=== PATIENT | male | born 1960 | race Caucasian/White ===

== ENCOUNTER 2017-02-23 17:34 | Emergency (ER) | payer OTHER ==
[~2017-02-23 17:34] MED LIST: MELOPOW XX; PRAV40TA PO; SENO8.6T6 PO; SOMA250T OR; TRAM100T19 OR; VITA100T15 OR; VITACAP32; ZOLP5TAB3 PO; ZYVO600T OR
[2017-02-23 17:47] VITALS: BP 134/91; PULSE 87; RESP 18; TEMP 98.4; O2SAT 99
[2017-02-23] MEDS ORDERED: ASPI325T PO (18:33)
[2017-02-23] MEDS ORDERED: KETOROLAC TROMETHAMINE 30 MG/ML (IVP) VIAL IV PUSH ONE (19:30)
[2017-02-23] MEDS ORDERED: SODIUM CHLOR 0.9% 1000 ML INJ 1,000 ML IV ONE (19:30)
[2017-02-23 19:38] LABS: AUTOMATED NEUTROPHIL # 4.7 TH/MM3 (1.8-7.7); BASOPHIL # 0.1 TH/MM3 (0-0.2); EOSINOPHIL # 0.1 TH/MM3 (0-0.4); EOSINOPHIL % 1.9 % (0.0-4.0); HEMO FLAGS DIFF FINAL; LYMPH % 24.5 % (9.0-44.0); LYMPHOCYTE # 1.8 TH/MM3 (1.0-4.8); MEAN CELL VOLUME 93.9 FL (80.0-100.0); MEAN CORPUSCULAR HGB CONC 35.1 % (32.0-36.0); MONO % 8.4 % (0.0-8.0); NEUT % 64.2 % (16.0-70.0); PLATELET COUNT 145 TH/MM3 (150-450); RED BLOOD COUNT 4.47 MIL/MM3 (4.50-5.90); RED CELL DISTRIBUTION WIDTH 12.8 % (11.6-17.2); WHITE BLOOD COUNT 7.3 TH/MM3 (4.0-11.0)
[2017-02-23 19:47] LABS: POTASSIUM 3.5 MEQ/L (3.5-5.1)
[2017-02-23 19:50] LABS: BICARBONATE 28.5 MEQ/L (21.0-32.0)
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
[2017-02-23 20:22] LABS: BLOOD, URINE TRACE (NEG); GLUCOSE,URINE NEG (NEG); KETONE, URINE NEG (NEG)
[2017-02-23 20:24] LABS: NITRITE,URINE POS (NEG)
[2017-02-23 20:29] LABS: COMMENT (UR) CULTURE INDICATED; CULTURE IF INDICATED CULTURE INDICATED; SQUAMOUS EPITHELIAL CELL URINE 0-5 /hpf (0-5); URINE COLOR YELLOW (YELLW/STRAW); WBC, URINE INNUM /hpf (0-5)
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
[2017-02-23] MEDS ORDERED: BACT800T5 PO (21:09)
[2017-02-23] MEDS ORDERED: SULFAMETHOXAZOLE-TRIMETHOPRIM DS 800-160 MG TAB PO ONE (21:15)
[2017-02-23 21:45] VITALS: BP 130/86; PULSE 80; O2SAT 99
--- NOTE | 2017-02-24 16:51 | EKG ---
Date Performed: 02/23/2017 Time Performed: 19:33:43 PTAGE: 56 years EKG: Sinus rhythm NORMAL ECG NO PREVIOUS TRACING DOCTOR: Maurizio Vallecillo Interpretating Date/Time 02/24/2017 16:50:21
== END 2017-02-23 22:00 | disposition home or self-care (01) ==
LOC: PHED 17:34
DX: N30.00 Acute cystitis without hematuria (principal); S20.219A Contusion of unspecified front wall of thorax, initial encounter; B96.1 Klebsiella pneumoniae [K. pneumoniae] as the cause of diseases classified elsewhere; F17.210 Nicotine dependence, cigarettes, uncomplicated; V49.9XXA Car occupant (driver) (passenger) injured in unspecified traffic accident, initial encounter
CPT/HCPCS: 71020; 80048; 81001; 85025; 87077; 87086; 87186; 93005; 96361; 96374; 99284; J1885; J7030